=== PATIENT | male | born 1960 | race Caucasian/White ===

== ENCOUNTER → 2018-03-15 | Outpatient (CLI) | payer BC ==
[2018-03-15 16:18] LABS: Basophils % (A) 0 %; Eosinophils # (A) 0.2 k/uL (0-0.7); Eosinophils % (A) 3 %; HCT 47.7 % (39.0-53.0); HGB 16.2 gm/dL (13.0-17.5); Lymphocytes # (A) 1.8 k/uL (1.0-4.8); Lymphocytes % (A) 30 %; MCH 29.9 pg (25.0-35.0); MCHC 33.9 g/dL (31.0-37.0); Mean Platelet Volume 6.7; Monocytes # (A) 0.3 k/uL (0-1.0); Monocytes % (A) 6 %; Neutrophils # (A) 3.6 k/uL (1.3-7.7); Neutrophils % (A) 59 %; Platelet Count 261 k/uL (150-450); RBC 5.42 m/uL (4.30-5.90); RDW 13.8 % (11.5-15.5); WBC 6.1 k/uL (3.8-10.6)
[2018-03-15 16:35] LABS: ALT 65 U/L (21-72); AST 47 U/L (17-59); Albumin 4.7 g/dL (3.5-5.0); Alkaline Phosphatase 81 U/L (38-126); Anion Gap 12 mmol/L; Blood Urea Nitrogen 15 mg/dL (9-20); C Reactive Protein 11.5 mg/L (<10.0); Calcium 9.5 mg/dL (8.4-10.2); Carbon Dioxide 30 mmol/L (22-30); Chloride 99 mmol/L (98-107); Glucose 82 mg/dL (74-99); Potassium 3.7 mmol/L (3.5-5.1); Sodium 141 mmol/L (137-145); Total Bilirubin 0.7 mg/dL (0.2-1.3); Total Protein 7.6 g/dL (6.3-8.2)
[2018-03-15 17:09] LABS: Erythrocyte Sedimentation Rate 7 mm/hr (0-15)
[2018-03-16 02:22] LABS: Thyroid Peroxidase Antibodies <28.0 U/mL (0.0-60.0)
== END | disposition home or self-care (01) ==
LOC: LABWHC1 15:10
PROVIDERS: ATTEND Allergy & Immunology
DX: T78.3XXA Angioneurotic edema, initial encounter (principal)
CPT/HCPCS: 36415; 80053; 85025; 85652; 86140; 86160; 86376; 86800; 88184; 88185

== ENCOUNTER 2019-05-02 09:46 | Day surgery (SDC) | payer BC ==
[2019-04-27 17:51] VITALS: BMI 28.3
--- NOTE | 2019-05-02 07:35 | P.GSHP ---
History of Present Illness H&P Date: 05/02/19 CHIEF COMPLAINT: Colon screen HISTORY OF PRESENT ILLNESS: The patient is a 59-year-old male who presents for colon screen. Lower endoscopy was offered for further evaluation and management. PAST MEDICAL HISTORY: Please see list. PAST SURGICAL HISTORY: Please see list. MEDICATIONS: Please see list. ALLERGIES: Please see list. SOCIAL HISTORY: No illicit drug use FAMILY HISTORY: No reports of Crohn disease or ulcerative colitis. REVIEW OF ORGAN SYSTEMS: CONSTITUTIONAL: No reports of fevers or chills. PHYSICAL EXAM: VITAL SIGNS: Stable GENERAL: Well-developed pleasant in no acute distress. HEENT: No scleral icterus. Extraocular movements grossly intact. Moist buccal mucosa. NECK: Supple without lymphadenopathy. CHEST: Unlabored respirations. Equal bilateral excursions. CARDIOVASCULAR: Regular rate and rhythm. Distal 2+ pulses. ABDOMEN: Soft, nontender, nondistended. MUSCULOSKELETAL: No clubbing, cyanosis, or edema. ASSESSMENT: 1. Colon screen. PLAN: 1. Recommend proceeding with a lower endoscopy Past Medical History Past Medical History: Cancer, Hypertension, Musculoskeletal Disorder Additional Past Medical History / Comment(s): HX OF DIVERTICULITIS, HX OF PROSTATE CA. HX ENLARGED HEART. CURRENT FX RT FOOT, IN BRACE. History of Any Multi-Drug Resistant Organisms: None Reported Past Surgical History: Bowel Resection, Orthopedic Surgery, Prostate Surgery, Tonsillectomy Additional Past Surgical History / Comment(s): RT SHOULDER SX. ORIF RT RADIUS, ULNA; LATER PLATES REMOVED. COLONOSCOPY. Past Anesthesia/Blood Transfusion Reactions: No Reported Reaction, Motion Sickness Smoking Status: Never smoker - Past Family History Sister(s) Family Medical History: Cancer Additional Family Medical History / Comment(s): MELANOMA CA Medications and Allergies Home Medications Medication Instructions Recorded Confirmed Type Hydrochlorothiazide 25 mg PO DAILY 09/26/14 04/27/19 History Allergies Allergy/AdvReac Type Severity Reaction Status Date / Time ANTIBIOTICS AdvReac Nausea & Uncoded 04/27/19 17:31 Vomiting, no specific name known
[~2019-05-02 09:46] MED LIST: LACTATED RINGERS 1,000 ML IV SCH
[2019-05-02 10:26] VITALS: TEMP 97.8
[2019-05-02] MEDS ORDERED: LACTATED RINGERS 1,000 ML IV ONE (10:26)
[2019-05-02] MEDS ORDERED: LIDOCAINE 1% 20 ML VIAL (10MG/ML) FOR IV START INTRADERMA ONE (10:26)
[2019-05-02] MEDS ORDERED: LIDOCAINE 1% INJ 10MG/ML (20 ML MDV) ONE (11:20)
[2019-05-02] MEDS ORDERED: PROPOFOL 10 MG/ML 20 ML VIAL IV ONE (11:20)
--- NOTE | 2019-05-02 11:47 | P.PCN ---
Date of Procedure: 05/02/19 Description of Procedure: PREOPERATIVE DIAGNOSIS: Family history colon cancer, mother Personal history of colon polyps. Colonoscopy screening POSTOPERATIVE DIAGNOSIS: Family history colon cancer, mother Personal history of colon polyps. Colonoscopy screening Multiple tubular adenomas throughout the colon. Moderate sigmoid diverticulosis OPERATION: Colonoscopy to the ileocecal valve and appendiceal orifice. Colonoscopy with hot snare polypectomy Colonoscopy with multiple cold forceps biopsies SURGEON: Millie Pelletier MD. ANESTHESIA: MAC. INDICATIONS: The patient is a 59-year-old male who presents for colonoscopy screening. Benefits and risks were described and informed consent was obtained. DESCRIPTION OF PROCEDURE: The patient had undergone Suprep. He had been brought into the operating room and laid in the left lateral decubitus position. After adequate intravenous sedation, the rectum was examined with 2% lidocaine jelly. No external hemorrhoids were encountered. Prostatic fossa was unremarkable. The rectal tone was within normal limits. No lesions were palpated in the rectal vault. An Olympus colonoscope was advanced until the ileocecal valve and appendiceal orifice were clearly viewed. The prep was fair with visualization of the mucosal folds. The scope was removed with visualization of each mucosal fold. moderate sigmoid diverticulosis was encountered. Colonic polyps were found and cold forcep biopsy or snare polypectomy. No evidence of focal colitis was fo und. Retroflexion of the scope demonstrated grade 1 internal hemorrhoids without active bleeding or inflammation. The colon was desufflated. The patient had tolerated the procedure well. Withdrawal time was over 6 minutes. FINDINGS: Aronchick preparation quality scale 2 (1-5) Internal hemorrhoids, grade 1 No external hemorrhoids No arteriovenous malformations Moderate sigmoid diverticulosis Removal of 2 polyps: - Snare polypectomy at 70 cm from the anal verge, transverse colon, 5 mm tubulovillous adenoma polyp. - Snare polypectomy 39 cm from the anal verge, 8 mm flat villous adenoma polyp. - Cold forceps biopsy at 20 cm from the anal verge, 4 mm polyp. No focal colitis. RECOMMENDATIONS: Repeat colonoscopy 5 years, 2023 Plan - Discharge Summary Discharge Rx Participant: No New Discharge Prescriptions: No Action Hydrochlorothiazide 25 mg PO DAILY Discharge Medication List Hydrochlorothiazide 25 mg PO DAILY 09/26/14 [History]
[2019-05-02 11:51] VITALS: BP 124/79
[2019-05-02 11:59] VITALS: PULSE 80; RESP 16
== END 2019-05-02 13:00 | disposition home or self-care (01) ==
LOC: ORWHC2ENDO 09:46
PROVIDERS: ATTEND Surgery Plastic and Reconstructive Surgery
DX: Z12.11 Encounter for screening for malignant neoplasm of colon (principal); K57.30 Diverticulosis of large intestine without perforation or abscess without bleeding; Z80.0 Family history of malignant neoplasm of digestive organs; Z86.010 Personal history of colon polyps; D12.3 Benign neoplasm of transverse colon; Z88.1 Allergy status to other antibiotic agents; I10 Essential (primary) hypertension; Z85.46 Personal history of malignant neoplasm of prostate
CPT/HCPCS: 88305; 45380; 45385; J2001; J2704